=== PATIENT | male | born 1970 | race Caucasian/White ===

== ENCOUNTER 2016-11-06 03:29 | Emergency (ER) | payer BC ==
[~2016-11-06] VITALS: Ht 185.4 cm; Wt 145.5 kg
[~2016-11-06 03:29] MED LIST: NO HOME MEDICATIONS; NORCO 325 MG-51 TA1 PO
[2016-11-06] MEDS ORDERED: ZOFRAN4 M2 PO (03:44)
[2016-11-06] MEDS ORDERED: GOOD NEIGHBOR200 M1 PO (03:45)
[2016-11-06 12:00] VITALS: BP 145/68
== END 2016-11-06 11:30 | disposition short-term general hospital (02) ==
LOC: ED 03:29
DX: K81.0 Acute cholecystitis (principal); E11.9 Type 2 diabetes mellitus without complications; I10 Essential (primary) hypertension; R12 Heartburn
CPT/HCPCS: C9113; J0595; J1815; J1956; J2405; J2765; J7030; Q9967

== ENCOUNTER 2018-01-30 21:42 | Emergency (ER) | payer BC ==
[~2018-01-30 21:42] MED LIST changes: +GOOD NEIGHBOR200 M1 PO; +ZOFRAN4 M2 PO
[2018-01-30] MEDS ORDERED: BACTRIM DS TAB1 EACH PO (22:31)
[2018-01-30 22:44] VITALS: BP 127/82
== END 2018-01-30 22:44 | disposition home or self-care (01) ==
LOC: ED 21:42
DX: L02.412 Cutaneous abscess of left axilla (principal); Z85.72 Personal history of non-Hodgkin lymphomas; Z88.0 Allergy status to penicillin; F17.220 Nicotine dependence, chewing tobacco, uncomplicated

== ENCOUNTER → 2018-02-03 | Outpatient (CLI) | payer BC ==
[2018-01-30 22:44] VITALS: BP 127/82
[~2018-02-03] MED LIST changes: +BACTRIM DS TAB1 EACH PO
[2018-02-03 18:35] LABS: BASO # 0.1 (0.02-0.10); EOS # 0.3 (0.04-0.40); EOS % 3.1 % (0.0-4.0); HEMATOCRIT 45.9 % (42.0-52.0); HEMOGLOBIN 15.6 g/dL (13.5-18.0); LYMPH# 2.6 (1.50-4.00); MEAN CELL VOLUME 83 fl (78-100); MEAN CORPUSCULAR HEMOGLOBIN 28 pg (27-31); MEAN CORPUSCULAR HGB CONC 34 g/dL (33-37); MEAN PLATELET VOLUME 9.8 fl (7.4-10.4); MONO # 0.6 (0.20-0.80); NEU # 4.8 (1.40-6.50); PLATELET COUNT 342 K/mm3 (130-400); RED BLOOD COUNT 5.56 M/mm3 (4.20-5.60); RED CELL DISTRIBUTION WIDTH 12.8 % (11.5-14.5); WHITE BLOOD COUNT 8.4 K/mm3 (4.8-10.8)
[2018-02-03 18:40] LABS: ALBUMIN 4.3 g/dL (3.5-5.0); CALCIUM 9.3 mg/dL (8.4-10.2); POTASSIUM 3.9 mmol/L (3.6-5.0); TOTAL BILIRUBIN 0.5 mg/dL (0.2-1.3); TOTAL PROTEIN 7.5 g/dL (6.3-8.2)
== END ==
LOC: RAD 16:32
PROVIDERS: Nurse Practitioner Family
DX: N63.32 Unspecified lump in axillary tail of the left breast (principal); Z85.72 Personal history of non-Hodgkin lymphomas